=== PATIENT | male | born 1990 | race Caucasian/White ===

== ENCOUNTER 2020-09-27 11:17 | Emergency (ER) | payer OTHER ==
[~2020-09-27 11:17] MED LIST: IBUPROFEN600 MG PO; NORCO 5-325 TA1 EACH PO; ZOFRAN ODT4 MG PO
[2020-09-27 12:11] LABS: HEMOGLOBIN 15.9 gm/dl (14.0-17.5); RED BLOOD COUNT 5.1 M/UL (4.20-5.50); WHITE BLOOD COUNT 10.9 K/UL (4.5-11.0)
[2020-09-27 12:33] LABS: BUN/CREATININE RATIO 12 (0-10)
== END 2020-09-27 15:50 | disposition home or self-care (01) ==
LOC: ER1 11:17
PROVIDERS: Nurse Practitioner
DX: R07.9 Chest pain, unspecified (principal); R00.0 Tachycardia, unspecified; I10 Essential (primary) hypertension; Z91.041 Radiographic dye allergy status; Z79.899 Other long term (current) drug therapy; F17.210 Nicotine dependence, cigarettes, uncomplicated
CPT/HCPCS: 71045; 80053; 80307; 81001; 82550; 82553; 83874; 84484; 85025; 93005; 99285